=== PATIENT | female | born 1960 | race Two or more races ===

== ENCOUNTER 2016-12-12 19:19 | Emergency (ER) | payer SELFPAY ==
[~2016-12-12] VITALS: Ht 165.1 cm; Wt 87.1 kg
[~2016-12-12 19:19] MED LIST: DOCU-109 PO; HYDR-2680 PO; Hydrocodone/Acetaminophen PO
--- NOTE | 2016-12-12 19:39 | PHYS DOC ---
Past Medical History Past Medical History: Other Additional Past Medical Histor: gallstones Past Surgical History: Cholecystectomy Alcohol Use: None Drug Use: None Adult General Chief Complaint Chief Complaint: CHEST PAIN HPI HPI Patient is a 56 year old email who presents with one hour history of substernal moderate chest pain no shortness of breath while attending a alliance party, no radiation of the pain, nonexertional. Prior records reveal a stress test that was normal 2 years ago.. Patient is a smoker no diabetes. Review of Systems Review of Systems Constitutional: Denies fever or chills [] Eyes: Denies change in visual acuity, redness, or eye pain [] HENT: Denies nasal congestion or sore throat [] Respiratory: Denies cough or shortness of breath [] Cardiovascular: No additional information not addressed in HPI [] GI: Denies abdominal pain, nausea, vomiting, bloody stools or diarrhea [] : Denies dysuria or hematuria [] Musculoskeletal: Denies back pain or joint pain [] Integument: Denies rash or skin lesions [] Neurologic: Denies headache, focal weakness or sensory changes [] Endocrine: Denies polyuria or polydipsia [] Current Medications Current Medications Current Medications Medications (Trade) Dose Ordered Sig/German Start Time Stop Time Status Last Admin Dose Admin Aspirin (Children'S Aspirin) 324 mg 1X ONCE 12/12/16 19:45 12/12/16 20:04 DC 12/12/16 20:08 324 MG Lorazepam (Ativan) 1 mg 1X ONCE 12/12/16 19:45 12/12/16 20:04 DC 12/12/16 20:09 1 MG Oxycodone/ Acetaminophen (Percocet 5/325) 1 tab 1X ONCE 12/12/16 22:00 12/12/16 22:01 DC 12/12/16 21:58 1 TAB Allergies Allergies Allergies Coded Allergies Type Severity Reaction Last Updated Verified No Known Drug Allergies 03/01/15 No Physical Exam Physical Exam Constitutional: Well developed, well nourished, mild acute distress, non-toxic appearance. [] HENT: Normocephalic, atraumatic, bilateral external ears normal, oropharynx moist, no oral exudates, nose normal. [] Eyes: PERRLA, EOMI, conjunctiva normal, no discharge. [] Neck: Normal range of motion, no tenderness, supple, no stridor. [] Cardiovascular:Heart rate regular rhythm, no murmur [] Lungs & Thorax: Bilateral breath sounds clear to auscultation [] Abdomen: Bowel sounds normal, soft, no tenderness, no masses, no pulsatile masses. [] Skin: Warm, dry, no erythema, no rash. [] Back: No tenderness, no CVA tenderness. [] Extremities: No tenderness, no cyanosis, no clubbing, ROM intact, no edema. [] Neurologic: Alert and oriented X 3, normal motor function, normal sensory function, no focal deficits noted. [] Psychologic: Affect normal, judgement normal, mood normal. [] Current Patient Data Vital Signs Vital Signs Date Time Temp Pulse Resp B/P (MAP) Pulse Ox O2 Delivery O2 Flow Rate FiO2 12/12/16 21:58 20 Room Air 12/12/16 21:30 98 123/68 (86) 100 12/12/16 19:27 98.6 98.6 Lab Values Laboratory Tests Test 12/12/16 19:40 White Blood Count 10.6 x10^3/uL (4.0-11.0) Red Blood Count 5.01 x10^6/uL (3.50-5.40) Hemoglobin 13.2 g/dL (12.0-15.5) Hematocrit 40.5 % (36.0-47.0) Mean Corpuscular Volume 81 fL (79-100) Mean Corpuscular Hemoglobin 26 pg (25-35) Mean Corpuscular Hemoglobin Concent 33 g/dL (31-37) Red Cell Distribution Width 17.0 % (11.5-14.5) H Platelet Count 273 x10^3/uL (140-400) Neutrophils (%) (Auto) 59 % (31-73) Lymphocytes (%) (Auto) 32 % (24-48) Monocytes (%) (Auto) 8 % (0-9) Eosinophils (%) (Auto) 1 % (0-3) Basophils (%) (Auto) 1 % (0-3) Neutrophils # (Auto) 6.2 x10^3uL (1.8-7.7) Lymphocytes # (Auto) 3.4 x10^3/uL (1.0-4.8) Monocytes # (Auto) 0.8 x10^3/uL (0.0-1.1) Eosinophils # (Auto) 0.1 x10^3/uL (0.0-0.7) Basophils # (Auto) 0.1 x10^3/uL (0.0-0.2) D-Dimer (Isabel) < 0.27 ug/mlFEU Sodium Level 142 mmol/L (136-145) Potassium Level 3.7 mmol/L (3.5-5.1) Chloride Level 104 mmol/L (98-107) Carbon Dioxide Level 22 mmol/L (21-32) Anion Gap 16 (6-14) H Blood Urea Nitrogen 14 mg/dL (7-20) Creatinine 1.1 mg/dL (0.6-1.0) H Estimated GFR (Cockcroft-Gault) 51.2 BUN/Creatinine Ratio 13 (6-20) Glucose Level 199 mg/dL (70-99) H Calcium Level 9.3 mg/dL (8.5-10.1) Total Bilirubin 0.3 mg/dL (0.2-1.0) Aspartate Amino Transferase (AST) 28 U/L (15-37) Alanine Aminotransferase (ALT) 37 U/L (14-59) Alkaline Phosphatase 97 U/L (46-116) Troponin I Quantitative < 0.017 ng/mL (0.000-0.055) Total Protein 8.6 g/dL (6.4-8.2) H Albumin 3.9 g/dL (3.4-5.0) Albumin/Globulin Ratio 0.8 (1.0-1.7) L Laboratory Tests 12/12/16 19:40 Laboratory Tests 12/12/16 19:40 EKG EKG EKG sinus tachycardia rate of 107 QTC 454 no STEMI my interpretation [] Radiology/Procedures Radiology/Procedures Chest x-ray: Cardiomegaly per my interpretation [] Course & Med Decision Making Course & Med Decision Making Pertinent Labs and Imaging studies reviewed. (See chart for details) Labs EKG chest x-ray unremarkable. Patient responded well to treatment. Patient appears stable for dismissal the pain seems atypical as not associated with exertion and associated with some level of anxiety. Patient is comfortable with going home. [] Dragon Disclaimer Dragon Disclaimer This electronic medical record was generated, in whole or in part, using a voice recognition dictation system. Departure Departure Impression: Primary Impression: Acute chest pain Disposition: HOME, SELF-CARE Condition: STABLE Referrals: NO PCP (PCP) DAVID DIMAS MD Dec 12, 2016 19:39
[2016-12-12 19:45] LABS: BASO # 0.1 x10^3/uL (0.0-0.2); BASO % 1 % (0-3); EOS % 1 % (0-3); HEMATOCRIT 40.5 % (36.0-47.0); HEMOGLOBIN 13.2 g/dL (12.0-15.5); LYMPH # 3.4 x10^3/uL (1.0-4.8); LYMPH % 32 % (24-48); MEAN CORPUSCULAR HEMOGLOBIN 26 pg (25-35); MEAN CORPUSCULAR HGB CONC 33 g/dL (31-37); MEAN CORPUSCULAR VOLUME 81 fL (79-100); MONO % 8 % (0-9); NEUT % 59 % (31-73); PLATELET COUNT 273 x10^3/uL (140-400); RED BLOOD COUNT 5.01 x10^6/uL (3.50-5.40); WHITE BLOOD COUNT 10.6 x10^3/uL (4.0-11.0)
[2016-12-12] MEDS ORDERED: ASPIRIN CHEWABLE 81 MG TABLET. PO ONE (19:45)
[2016-12-12 20:13] LABS: CALCIUM 9.3 mg/dL (8.5-10.1); CREATININE 1.1 mg/dL (0.6-1.0); GFR 51.2; POTASSIUM 3.7 mmol/L (3.5-5.1)
[2016-12-12 20:18] LABS: ALBUMIN 3.9 g/dL (3.4-5.0); ALBUMIN/GLOBULIN RATIO 0.8 (1.0-1.7); TOTAL BILIRUBIN 0.3 mg/dL (0.2-1.0); TOTAL PROTEIN 8.6 g/dL (6.4-8.2)
[2016-12-12 21:30] VITALS: BP 123/68
[2016-12-12] MEDS ORDERED: oxyCODONE/APAP 5/325 1 TAB TABLET PO ONE (22:00)
--- NOTE | 2016-12-13 07:55 | RAD ---
AP chest radiograph 12/12/2016 Clinical indication: Left sided chest pain. Comparison: Chest radiograph March 01, 2015. Findings: Hypoinflation of both lungs. Cardiac and mediastinal silhouettes are within normal limits for technique. No pleural effusion, pneumothorax or focal consolidation. Impression: Mild hypoinflation of both lungs with no acute cardiopulmonary abnormality.
--- NOTE | 2016-12-13 12:46 | EKG ---
[facility] [address] [place] [address] Test Date: 2016-12-12 Test Time: 19:29:10 Pat Name: KHOA REGAN Department: Room: Gender: F Manufacturing Coordinator: : 1960 Requested By: DAVID DIMAS Order Number: [id number] Reading MD: Ismael Vogel Measurements Intervals [place] Rate: 107 P: 34 OK: 154 QRS: -31 QRSD: 82 T: 42 QT: 336 QTc: 454 Interpretive Statements SINUS TACHYCARDIA LAD Electronically Signed On 12-14-2016 11:57:03 CDT by Ismael Vogel
== END 2016-12-12 22:04 | disposition home or self-care (01) ==
LOC: ER 19:19
DX: R07.2 Precordial pain (principal); F17.200 Nicotine dependence, unspecified, uncomplicated; Z90.49 Acquired absence of other specified parts of digestive tract; Z87.19 Personal history of other diseases of the digestive system
CPT/HCPCS: 36415; 71010; 80053; 84484; 85025; 85379; 93005; 96374; 99285; J2060